=== PATIENT | female | born 1935 | race Two or more races ===

== ENCOUNTER 2018-04-24 14:50 | Inpatient (IN) | payer OTHER ==
[~2018-04-24] VITALS: Ht 152.4 cm; Wt 39.9 kg
[2018-05-03] MEDS ORDERED: SYNTHROID75 MCG PO (16:25)
[2018-05-03] MEDS ORDERED: COZAAR100 MG PO (16:25)
[2018-05-03] MEDS ORDERED: METFORMIN HCL500 MG PO (16:25)
[2018-05-03] MEDS ORDERED: ESTER-C 1,0001 EACH PO (16:26)
[2018-05-03] MEDS ORDERED: ALENDRONATE SOD70 MG PO (16:26)
[2018-05-03] MEDS ORDERED: ZOCOR40 MG PO (16:26)
[2018-05-03] MEDS ORDERED: MAXIMUM D310000 UNIT PO (16:26)
[2018-05-12] MEDS ORDERED: TYLENOL ARTHRI650 MG PO (09:06)
== END 2018-05-12 09:41 | disposition home or self-care (01) | DRG 331 ==
LOC: O/R 05-09 05:59 → SURG 05-09 05:59 → O/R 05-09 07:00 → SURG 05-09 12:28 → O/R 05-09 13:45 → SURG 05-12 09:41
PROVIDERS: Surgery
PROC: 07TC4ZZ Resection of Pelvis Lymphatic, Percutaneous Endoscopic Approach (ICD-10-PCS; 2018-05-09)
PROC: 0DTF4ZZ Resection of Right Large Intestine, Percutaneous Endoscopic Approach (ICD-10-PCS; principal; 2018-05-09 07:00)
DX: D12.0 Benign neoplasm of cecum (principal); D12.2 Benign neoplasm of ascending colon; R59.0 Localized enlarged lymph nodes